=== PATIENT | female | born 1945 | race Two or more races ===

== ENCOUNTER 2018-07-27 12:10 | Emergency (ER) | payer SELFPAY ==
[~2018-07-27] VITALS: Ht 162.6 cm; Wt 55.3 kg
[2018-07-27 12:32] VITALS: Ht 162.6 cm; Wt 55.3 kg
[2018-07-27 13:11] VITALS: BP 142/75
== END 2018-07-27 13:11 | disposition home or self-care (01) ==
LOC: ED 12:10
DX: S16.1XXA Strain of muscle, fascia and tendon at neck level, initial encounter (principal); V49.59XA Passenger injured in collision with other motor vehicles in traffic accident, initial encounter; Y93.89 Activity, other specified; Y92.413 State road as the place of occurrence of the external cause; Y99.8 Other external cause status
CPT/HCPCS: J1885